=== PATIENT | female | born 2000 | race Caucasian/White ===

== ENCOUNTER 2019-09-23 10:22 | Day surgery (SDC) | payer OTHER ==
[~2019-09-23 10:22] MED LIST: ACETAMINOPHEN 1000MG 100ML IV BTL (OFIRMEV) (J0131 PER 10MG) As Ordered ONE; LIDOCAINE W/EPINEPHRINE 1% 20ML VIAL As Ordered ONE; MIDAZOLAM INJ 2MG/2ML VIAL (J2250 PER 1MG) As Ordered ONE; ONDANSETRON 4MG/2ML VIAL As Ordered ONE; ROCURONIUM BROMIDE 50 MG/5 ML VIAL As Ordered ONE; SUGAMMADEX SODIUM 500 MG/5 ML VIAL (BRIDION) As Ordered ONE; dexameTHASONE 4 MG/ML 1ML VIAL (J1100 PER 1MG) As Ordered ONE; fentaNYL 100 MCG/2 ML INJECTION (J3010) As Ordered ONE; propofoL 200 MG/20 ML VIAL As Ordered ONE
[2019-09-23] MEDS ORDERED: HYDROmorphone HCL 2 MG/ML 1ML VIAL (J1170) As Ordered ONE (11:43)
[2019-09-23] MEDS ORDERED: oxyCODONE 5MG TAB As Ordered ONE (12:16)
--- NOTE | 2019-11-19 14:01 | RO ---
DATE OF PROCEDURE: 09/23/2019 PREOPERATIVE DIAGNOSIS: Chronic tonsillitis. POSTOPERATIVE DIAGNOSIS: Chronic tonsillitis. OPERATIVE PROCEDURE: Tonsillectomy. PROCEDURE NOTE: Under general anesthesia with the patient intubated, the patient draped in the usual manner. I infiltrated the tonsillar area with lidocaine and epinephrine. Using cautery, I dissected the tonsillar pad on the left side first and then on the right side. Base and apex areas were cauterized. The patient tolerated the procedure well. No blood loss. The patient was extubated and transferred to the recovery room in excellent condition. edited: 11/24/2019 1324 [id number] BELLO
== END 2019-09-23 13:45 | disposition home or self-care (01) ==
LOC: M SDC 10:22
PROVIDERS: ATTEND Otolaryngology
DX: J35.01 Chronic tonsillitis (principal); Z88.0 Allergy status to penicillin
CPT/HCPCS: 42826; 88302; J0131; J1100; J1170; J2250; J2405; J3010

== ENCOUNTER → 2020-04-10 | Outpatient (REF) | payer OTHER | LOC: M LAB REF 16:56 | PROVIDERS: ATTEND Nurse Practitioner Family | DX: Z12.4 Encounter for screening for malignant neoplasm of cervix (principal) ==

== ENCOUNTER → 2020-06-29 | Outpatient (CLI) | payer OTHER ==
[2020-06-29 12:54] LABS: HCG, SERUM QUALITATIVE POSITIVE (NEGATIVE)
== END ==
LOC: M LAB 11:01
PROVIDERS: ATTEND Nurse Practitioner Family
DX: N91.1 Secondary amenorrhea (principal)

== ENCOUNTER → 2020-08-01 | Outpatient (REF) | payer OTHER | LOC: M PLALAB 11:14 | PROVIDERS: ATTEND Specialist | DX: Z34.01 Encounter for supervision of normal first pregnancy, first trimester (principal); N92.6 Irregular menstruation, unspecified ==

== ENCOUNTER → 2020-08-03 | Outpatient (REF) | payer OTHER | LOC: M PLALAB 09:50 | PROVIDERS: ATTEND Specialist | DX: N92.6 Irregular menstruation, unspecified (principal) ==

== ENCOUNTER 2020-08-04 18:00 | Emergency (ER) | payer OTHER ==
[~2020-08-04] VITALS: Ht 170.2 cm; Wt 106.5 kg
[2020-08-04 20:59] LABS: APPEARANCE, URINE HAZY (CLEAR); BACTERIA, URINE AUTO NEGATIVE (NEGATIVE); BILIRUBIN, URINE AUTO NEGATIVE (NEGATIVE); BLOOD, URINE BLOOD NEGATIVE (NEGATIVE); COLOR, URINE YELLOW (YELLOW); GLUCOSE, URINE (UA) AUTO NEGATIVE (NEGATIVE); KETONE, URINE AUTO NEGATIVE (NEGATIVE); LEUKOCYTE ESTERASE, URINE AUTO NEGATIVE (NEGATIVE); MUCUS, URINE SMALL (NEGATIVE); NITRITE, URINE AUTO NEGATIVE (NEGATIVE); PROTEIN, URINE AUTO NEGATIVE (NEGATIVE); RBC, URINE AUTO 1 /HPF (0-3); SPECIFIC GRAVITY URINE AUTO 1.021 (1.002-1.035); SQUAMOUS EPITHELIAL CELL UR AU 4 /HPF (0-6); UROBILINOGEN, URINE AUTO 0.2 mg/dL (0.0-2.0); WBC, URINE AUTO 1 /HPF (0-3)
--- NOTE | 2020-08-04 21:13 | REPVR ---
PROCEDURE INFORMATION: Exam: US First Trimester, Transabdominal Exam date and time: 08/04/2020 8:34 PM Age: 20 years old Clinical indication: Lmp or gestational age (in weeks): 05/28/2020; Other: Abnormal US and abnormal hcg; ; Additional info: Abnl US, low hcg TECHNIQUE: Imaging protocol: Real-time transabdominal obstetrical ultrasound of the maternal pelvis and a first trimester , less than 14 weeks 0 days, with image documentation. COMPARISON: No relevant prior studies available. FINDINGS: Gestation: There is a yolk sac. The gestational sac is somewhat elliptical in configuration. Embryonic/ heart rate: No cardiac activity is noted. Extra-embryonic membranes/Placenta: There is a subchorionic fluid collection noted along the superior aspect of the gestational sac which measures 0.8 x 0.5 by point 4 cm. BIOMETRY: Mean sac diameter: Transabdominally, there is an intrauterine gestational sac measuring 2.5 x 1.1 x 2.3 cm for a mean sac diameter of 1.98 cm for menstrual age of 7 weeks and 0 days. [place]-Rump length: There is a pole with a crown-rump length measurement of 3.7 cm for a menstrual age of 6 weeks and 4 days. MATERNAL: Uterus: Endovaginally, the uterus measures 9.6 x 5 point 9 by a by approximately 6 cm. Cervix: The cervix was closed at the time the examination. Right adnexa: Endovaginally, the right ovary measures 3.8 x 2.6 x 3 cm. Left adnexa: Unremarkable. Intraperitoneal space: No intraperitoneal free fluid. IMPRESSION: 1. Single intrauterine with an estimated menstrual age of 6 weeks and 4 days. No cardiac activity. The gestational sac is somewhat elliptical in configuration which is a soft sign for failure. Serial beta hCG measurement and follow-up ultrasound recommended. 2. Small subchorionic fluid collection. Electronically signed by: Della Perkins On 08/04/2020 21:12:48 PM
[2020-08-04 22:04] VITALS: BP 138/77
== END 2020-08-04 22:04 | disposition home or self-care (01) ==
LOC: M ED 18:00
DX: O02.1 Missed abortion (principal); Z88.0 Allergy status to penicillin; Z3A.01 Less than 8 weeks gestation of pregnancy